=== PATIENT | male | born 1945 | race Caucasian/White ===

== ENCOUNTER → 2017-11-29 | Outpatient (CLI) | payer MEDICARE ==
[~2017-11-29] MED LIST: ATORVASTATIN CA10 MG PO; FENOFIBRATE134 MG PO; METOPROLOL SUCC50 MG PO; NIFEDIPINE ER30 M1 PO; omeprazole PO
--- NOTE | 2017-11-29 11:34 | Diagnostic Imaging Report ---
PROCEDURE:US RETROPERITONEAL ( KIDNEY ). COMPARISON:Patients [facility], CT, CT ABDOMEN/PELVIS WO, 12/08/2016, 16:41. INDICATIONS:UTI, Renal Colic TECHNIQUE: Mckinney scale color Doppler ultrasound kidneys FINDINGS: Right: 13.5 x 5.9 x 6.1 cm. Cortical thickness 2 cm Left: 13.9 x 6.4 x 5.8 cm. Cortical thickness 1.9 cm Simple cysts: Right superior pole 2 x 1.4 x 1.5 cm Right medial 1.1 x 1.2 x 1.3 cm Right inferior 0.6 x 0.7 x 0.9 cm Left lateral 1.7 x 1.1 x 1.3 cm Normal urinary bladder. Patent ureters. Prostate volume: 27 mm CONCLUSION: Multiple simple renal cysts. Otherwise, normal renal ultrasound. Dictated by: Tung Yun M.D. on 11/29/2017 at 11:34 Electronically approved by: Tung Yun M.D. on 11/29/2017 at 11:34
== END ==
LOC: US 10:03
PROVIDERS: ATTEND Urology
DX: N39.0 Urinary tract infection, site not specified (principal); R31.9 Hematuria, unspecified; N23 Unspecified renal colic
CPT/HCPCS: 76770

== ENCOUNTER 2019-02-23 10:03 | Emergency (ER) | payer MEDICARE ==
[~2019-02-23] VITALS: Ht 165.1 cm; Wt 90.7 kg
--- OUTSIDE RECORDS SUMMARY | 2019-02-23 10:05 | XMS REPORT ---
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 Allergies, Adverse Reactions, Alerts This patient has no known allergies or adverse reactions. Medications This patient has no known medications. Results Test Description Test Time Test Comments Text Results Atomic Results Result Comments US RENAL RETROPERITONEAL COMP [place] [id number] Patient Name: BENNETT FISHER MR #: [id number] : 1945 Age/Sex: 71/M Req #: [id number] Adm Physician: Ordered by: THAIS BARNETT MD Report #: [id number] Location: US Room/Bed: Procedure: [id number] US/US RENAL RETROPERITONEAL COMP Exam Date: 11/29/17 Exam Time: 1027 REPORT STATUS: Signed PROCEDURE: US RETROPERITONEAL ( KIDNEY ). COMPARISON: Patients [facility], CT, CT ABDOMEN/PELVIS WO, 12/08/2016, 16:41. INDICATIONS: UTI, Renal Colic TECHNIQUE: Mckinney scale color Doppler ultrasound kidneys FINDINGS: Right: 13.5 x 5.9 x 6.1 cm. Cortical thickness 2 cm Left: 13.9 x 6.4 x 5.8 cm. Cortical thickness 1.9 cm Simple cysts: Right superior pole 2 x 1.4 x 1.5 cm Right medial 1.1 x 1.2 x 1.3 cm Right inferior 0.6 x 0.7 x 0.9 cm Left lateral 1.7 x 1.1 x 1.3 cm Normal urinary bladder. Patent ureters. Prostate volume: 27 mm CONCLUSION: Multiple simple renal cysts. Otherwise, normal renal ultrasound. Dictated by: Luis Yun M.D. on 11/29/2017 at 11:34 Electronically approved by: Luis Yun M.D. on 11/29/2017 at 11:34 Dictated By: LUIS YUN MD [id number] Transcribed By: AIDA on 11/29/17 1134 COPY TO: THAIS BARNETT MD
== END 2019-02-23 12:37 | disposition home or self-care (01) ==
LOC: FSED 10:03
DX: H10.021 Other mucopurulent conjunctivitis, right eye (principal)
CPT/HCPCS: 99283

== ENCOUNTER 2019-04-07 14:00 | Emergency (ER) | payer MEDICARE ==
[~2019-04-07] VITALS: Ht 165.1 cm; Wt 90.7 kg
== END 2019-04-07 14:34 | disposition home or self-care (01) ==
LOC: FSED 14:00
DX: L01.03 Bullous impetigo (principal); S80.862A Insect bite (nonvenomous), left lower leg, initial encounter; I10 Essential (primary) hypertension; K21.9 Gastro-esophageal reflux disease without esophagitis; E78.00 Pure hypercholesterolemia, unspecified
CPT/HCPCS: 99282